=== PATIENT | male | born 1985 | race Caucasian/White ===

== ENCOUNTER 2018-01-06 10:53 | Emergency (ER) | payer MEDICAID ==
[~2018-01-06] VITALS: Ht 193 cm; Wt 111.0 kg
[2018-01-06 10:55] VITALS: BP 124/86
[2018-01-06] MEDS ORDERED: CEFTRIAXONE 250 MG IM ONE (11:30)
[2018-01-06] MEDS ORDERED: AZITHROMYCIN 500 MG TABLET PO ONE (11:30)
[2018-01-06] MEDS ORDERED: CEFTRIAXONE 250 MG ONE (11:47)
[2018-01-06] MEDS ORDERED: AZITHROMYCIN 250 MG TABLET ONE (11:48)
[2018-01-06 11:55] LABS: CULTURE INDICATED? YES; MICROSCOPIC INDICATED
== END 2018-01-06 12:17 | disposition home or self-care (01) ==
LOC: ED 12:00
DX: A56.01 Chlamydial cystitis and urethritis (principal); A54.01 Gonococcal cystitis and urethritis, unspecified
CPT/HCPCS: 81001; 87086; 87491; 87591; 96374; 99284; J0696